=== PATIENT | female | born 1995 | race Caucasian/White ===

== ENCOUNTER 2022-07-16 01:50 | Inpatient (IN) | payer OTHER, SELFPAY ==
[2022-07-16] VITALS (38 sets, daily range): BP systolic 92–133; BP diastolic 51–84; PULSE 75–116; RESP 16–18; TEMP 36.1–37.1; O2SAT 78–100; BMI 30.1
[2022-07-16] MEDS: LACTATED RINGERS 500 ML 999 ML IV (02:00)
[2022-07-16] MEDS: Lactated Ringers 1,000 ML 200 ML IV (02:00)
[2022-07-16 02:14] LABS: Absolute Lymphocyte Count 1.67 X10^3/uL (0.83-4.51); Absolute Neutrophil Count 8.5 X10^3/uL (2.0-7.7); Basophil# 0.03 X10^3/uL; Basophil% 0.3 % (0-1); Eosinophil# 0.06 X10^3/uL; Eosinophils% 0.5 % (0-5); Hematocrit 33.8 % (37-47); Hemoglobin 10.9 g/dL (12.0-15.0); Lymphocyte # 1.67 X10^3/ul (0.83-4.51); Lymphocyte % 14.9 % (19-41); Mean Corp Hgb Conc 32.2 g/dL (32-36); Mean Corpuscular Hgb 28.2 pg (27.0-32.0); Mean Corpuscular Volume 87.6 fL (81-99); Mean Platelet Vol. 11.8 fl (6.2-12.0); Monocyte# 0.93 X10^3/uL; Monocyte% 8.3 % (0-10); NRBC Flagged by Analyzer 0 % (0-5); Neutrophil # 8.45 X10^3/uL (2.7-7.7); Neutrophil % 75.6 % (47-70); Platelet Count 221 K/mm3 (150-450); RBC Distribution Width CV 13.2 % (11.6-14.6); RBC Distribution Width SD 42.1 fl (35.1-43.9); Red Blood Count 3.86 M/mm3 (4.2-5.4); White Blood Count 11.2 K/mm3 (4.4-11.0)
[2022-07-16] MEDS: fentaNYL-bupivacaine (epidural) 100 ML BAG EPIDURAL (03:38)
[2022-07-16] MEDS: Mag Hydrox/Al Hydrox/Simeth 30 ML UDC PO (07:46)
[2022-07-16] MEDS: Lactated Ringers 1,000 ML 999 ML IV (07:52)
[2022-07-16] MEDS: Oxytocin 10 UNITS/ML Vial IM (07:59)
--- NOTE | 2022-07-16 08:21 | PCM.HP.OB ---
HPI - General General Date of Admission: 07/16/22 HPI Narrative OMER SAENZ, is a 27 F who presents at 39w3d by LMP. Contractions increased at home and presented to labor and delivery. Upon arrival in active labor. No leakage of fluid or bleeding and good movement. course uncomplicated. Maternal Data Information YANG Calculator Estimated Delivery Date Method Current WG Current Estimate 07/20/22 Manual 39w 3d PFSH [facility] Medical History (Updated 07/16/22 @ 08:33 by Vanessa Yi CNM) Anxiety Home Medications 1 1 tablet PO.IVFORM DAILY see provider 07/16/22 [History Last Taken 07/09/22 08:00] acetaminophen 325 mg capsule (Tylenol) 500 mg PO PRN PRN Pain 07/16/22 [History Last Taken 07/16/22 00:00] Allergy/AdvReac Type Severity Reaction Status Date / Time No Known Allergies Allergy Verified 07/16/22 01:32 Social History Smoking Status: Never smoker History Elective abortions Hx Para 0 Spontaneous abortions Hx # Term Pregnancies Ectopic pregnancies Hx # Pregnancies Multiple births # of living children NST FHR Rate Baby A Baseline: 145 Variability:: Moderate Accelerations:: 15 x 15 Decelerations:: None NST Reactive:: Yes FHR Category:: Category I Uterine Activity:: every 2 minutes, strong ROS Constitutional Constitutional: Reports systems reviewed and no addt'l complaints, except as documented; Denies headache(s) Eyes Eyes: Denies acute decrease in peripheral vision, blurry vision or change in vision ENT HEENT: Reports systems reviewed and no addt'l complaints, except as documented Cardiovascular Cardiovascular: Denies chest pain or dizziness Respiratory/Chest Respiratory/Chest: Denies cough, dyspnea, dyspnea on exertion, shortness of breath at rest or shortness of breath with exertion Gastrointestinal Gastrointestinal: Denies abdominal pain, diarrhea, nausea or vomiting Genitourinary Genitourinary: Denies abdominal discomfort Musculoskeletal Musculoskeletal: Denies limited range of motion Integumentary Integumentary: Reports systems reviewed and no addt'l complaints, except as documented Neurologic Neurologic: Reports systems reviewed and no addt'l complaints, except as documented Psychiatric Psychiatric: Reports systems reviewed and no addt'l complaints, except as documented Endocrine Endocrinology: Reports systems reviewed and no addt'l complaints, except as documented Hematologic/Lymphatic Hematologic/Lymphatic: Reports systems reviewed and no addt'l complaints, except as documented Allergic/Immunologic Allergic/Immunologic: Reports systems reviewed and no addt'l complaints, except as documented Vital Signs Vital Signs Vital Signs: 07/16/22 01:36 07/16/22 01:36 07/16/22 01:36 Temperature Temperature Source Temporal Pulse Rate 88 Blood Pressure 120/79 BP Systolic 120 BP Diastolic 79 Pulse Ox 07/16/22 01:36 07/16/22 01:36 07/16/22 03:24 Temperature 98.1 F Temperature Source Pulse Rate 99 Blood Pressure BP Systolic BP Diastolic Pulse Ox 98 07/16/22 03:24 07/16/22 03:28 07/16/22 03:28 Temperature Temperature Source Pulse Rate 82 Blood Pressure 133/73 H BP Systolic 133 BP Diastolic 73 Pulse Ox 100 07/16/22 03:29 07/16/22 03:29 07/16/22 03:34 Temperature Temperature Source Pulse Rate 90 Blood Pressure 120/67 BP Systolic 120 BP Diastolic 67 Pulse Ox 100 07/16/22 03:34 07/16/22 03:34 07/16/22 03:34 Temperature Temperature Source Pulse Rate 86 98 Blood Pressure BP Systolic BP Diastolic Pulse Ox 98 07/16/22 03:38 07/16/22 03:38 07/16/22 03:39 Temperature Temperature Source Pulse Rate 100 Blood Pressure 107/56 L 102/51 L BP Systolic 107 102 BP Diastolic 56 51 Pulse Ox 07/16/22 03:39 07/16/22 03:39 07/16/22 03:28 Temperature Temperature Source Temporal Pulse Rate 99 Blood Pressure BP Systolic BP Diastolic Pulse Ox 100 07/16/22 03:28 07/16/22 03:43 07/16/22 03:43 Temperature 97.8 F Temperature Source Pulse Rate 116 H Blood Pressure BP Systolic BP Diastolic Pulse Ox 93 07/16/22 03:44 07/16/22 03:44 07/16/22 03:48 Temperature Temperature Source Pulse Rate 108 H Blood Pressure 121/84 H BP Systolic 121 BP Diastolic 84 Pulse Ox 99 07/16/22 03:48 07/16/22 03:49 07/16/22 03:49 Temperature Temperature Source Pulse Rate 107 H 110 H Blood Pressure BP Systolic BP Diastolic Pulse Ox 100 07/16/22 03:53 07/16/22 03:53 07/16/22 03:54 Temperature Temperature Source Pulse Rate 106 H 108 H Blood Pressure 111/62 BP Systolic 111 BP Diastolic 62 Pulse Ox 07/16/22 03:54 07/16/22 03:59 07/16/22 03:59 Temperature Temperature Source Pulse Rate 96 Blood Pressure 107/59 L BP Systolic 107 BP Diastolic 59 Pulse Ox 100 07/16/22 03:59 07/16/22 04:03 07/16/22 04:03 Temperature Temperature Source Pulse Rate 95 Blood Pressure 106/59 L BP Systolic 106 BP Diastolic 59 Pulse Ox 99 07/16/22 04:04 07/16/22 04:04 07/16/22 04:09 Temperature Temperature Source Pulse Rate 88 Blood Pressure 108/65 BP Systolic 108 BP Diastolic 65 Pulse Ox 100 07/16/22 04:09 07/16/22 04:10 07/16/22 04:09 Temperature Temperature Source Temporal Pulse Rate 93 Blood Pressure BP Systolic BP Diastolic Pulse Ox 78 07/16/22 04:09 07/16/22 05:09 07/16/22 05:09 Temperature 97.0 F L Temperature Source Pulse Rate 93 Blood Pressure 111/65 BP Systolic 111 BP Diastolic 65 Pulse Ox 07/16/22 05:08 07/16/22 05:08 07/16/22 05:08 Temperature 97.8 F Temperature Source Temporal Pulse Rate Blood Pressure BP Systolic BP Diastolic Pulse Ox 97 07/16/22 06:33 07/16/22 06:33 07/16/22 06:34 Temperature Temperature Source Pulse Rate 102 H Blood Pressure 118/76 BP Systolic 118 BP Diastolic 76 Pulse Ox 98 07/16/22 06:34 07/16/22 06:34 07/16/22 06:34 Temperature 97.9 F Temperature Source Temporal Pulse Rate 100 Blood Pressure BP Systolic BP Diastolic Pulse Ox 07/16/22 07:16 07/16/22 07:16 07/16/22 07:19 Temperature Temperature Source Temporal Pulse Rate 87 Blood Pressure 115/61 BP Systolic 115 BP Diastolic 61 Pulse Ox 07/16/22 07:19 07/16/22 07:52 07/16/22 07:52 Temperature 98.0 F Temperature Source Pulse Rate 80 Blood Pressure BP Systolic BP Diastolic Pulse Ox 100 07/16/22 07:55 07/16/22 07:55 07/16/22 08:10 Temperature Temperature Source Pulse Rate 98 Blood Pressure 105/62 BP Systolic 105 BP Diastolic 62 Pulse Ox 89 07/16/22 08:10 07/16/22 08:10 Temperature Temperature Source Pulse Rate 94 Blood Pressure BP Systolic BP Diastolic Pulse Ox 99 Weight Weight: 170 lb 3.15 oz Body Mass Index (BMI) 30.1 Physical Exam Const alert and oriented x3 General Appearance: cooperative Orientation / Consciousness: awake, oriented to person, oriented to place and oriented to time Exam Limitations: no limitations HEENT normocephalic Head and Scalp: normal to inspection, normocephalic and atraumatic Face and Sinus: normal facial exam Eyes General Eye: normal appearance of both eyes Neck full ROM Chest Chest: symmetrical chest wall rise Resp normal respiratory effort and normal air movement Auscultation: clear to auscultation bilaterally Cardio regular rate, regular rhythm, S1 normal heart sound, S2 normal heart sound, no murmurs, no rub, no gallops and no clicks GI normal to inspection, nondistended, normoactive bowel sounds and non-tender appearance of the vagina normal Bladder / Kidney Exam: no CVA tenderness Back/Spine normal ROM Extremity normal to inspection and full ROM Skin no rashes or lesions noted Neuro oriented x3, CN's II-XII intact bilaterally and moves all extremities Sensorium / Orientation: awake, alert and oriented to person Motor Exam: clonus absent Deep Tendon Reflexes: Rt Patellar (L4): 2+ and Lt Patellar (L4): 2+ Labs Labs Labs: Blood Type O POSITIVE Antibody Screen NEGATIVE Hct 33.8 % (37-47) L Hgb 10.9 g/dL (12.0-15.0) L GBS negative O negative RPR negative HIV negative Rubella immune GC/CT negative 1hr GCT wnl Hep C negative HBsAG negative Assessment & Plan (1) control counseling: COMMENT: Desires Nexplanon insertion prior to discharge PLAN: Plan 1) Admit to labor and delivery 2) Routine labs 3) Continuous EFM, Category 1 4) Desires epidural upon admission 5) Positional changes 6) Desires immediate PP nexplanon placement 7) collaborative physician and notified of patient status
--- NOTE | 2022-07-16 08:21 | EX.PCM.OBRPT ---
Assessment & Plan (1) Active labor at term: (2) History of anxiety: (3) Vaginal delivery: (4) First degree perineal laceration: Vaginal Delivery Maternal Presentation Maternal Presentation: Active Labor Operative Information Date of Procedure: 07/16/22 Pre-Operative Diagnosis: Active labor at term Post-Operative Diagnosis: with first degree perineal laceration Surgery / Procedure Performed: Spontaneous Vaginal Delivery Type of Anesthesia: Epidural Drain: Ramirez to straight drain Estimated Blood Loss: 300 ml Time of Delivery: 07:56 Findings Description of Procedure: Progressed to complete with urge to push. Epidural for pain management. of viable male over first degree perineal laceration. APGARS 8,9 respectively. Infant head delivered with body immediately forthcoming. Placed on maternal abdomen, strong cry. Mouth and nares suctioned for secretions. Pitocin IM given for active 3rd stage management. Cord doubly clamped and cut by FOB after pulsations ceased, delayed cord clamping. Placenta delivered intact via lindy, 3 vessel cord intact. Perineum inspected and revealed 1st degree perineal laceration. Repaired with 3.0 vicryl rapide and epidural. Fundus firm and hemostasis achieved. 300ml EBL. Mom and baby stable, planning to breastfeed. Family bonding well. notified of delivery. Presentation: Vertex and ISAI Amniotic Membrane Rupture Type: Spontaneous Amniotic Fluid Description: Clear Placental Delivery Description: Expressed Placenta Disposition: [facility] Cord Vessel Description: 3 Vessels Cord Entanglement: None Infant A Gender: Male (1 minute): 8 (5 minute): 9 Delayed Cord Clamping: Yes Post Vaginal Delivery Medications Given After Delivery: - (IM pitocin) Episiotomy Description: None Laceration: Perineal Extension/lac and 1st degree Complication Complications: None
[2022-07-16] MEDS: Ibuprofen 600 MG Tablet PO (23:23)
[2022-07-17 03:20] VITALS: BP 104/64; PULSE 76; RESP 16; TEMP 36.7; O2SAT 97
[2022-07-17 06:10] LABS: Hematocrit 28.4 % (37-47); Hemoglobin 8.9 g/dL (12.0-15.0); Mean Corp Hgb Conc 31.3 g/dL (32-36); Mean Corpuscular Hgb 28.3 pg (27.0-32.0); Mean Corpuscular Volume 90.4 fL (81-99); Platelet Count 173 K/mm3 (150-450); RBC Distribution Width CV 13.6 % (11.6-14.6); RBC Distribution Width SD 44.4 fl (35.1-43.9); Red Blood Count 3.14 M/mm3 (4.2-5.4); White Blood Count 11.2 K/mm3 (4.4-11.0)
[2022-07-17] MEDS: Etonogestrel 68 MG IMPLANT SC (07:58)
[2022-07-17] MEDS: Ibuprofen 600 MG Tablet PO (08:05)
--- NOTE | 2022-07-17 08:13 | PCM.PN.OB ---
Subjective Subjective Patient seen at bedside. Feeling good. with minimal support. Ambulating and voiding without difficulty. Lochia decreasing. Desires discharge home today. Objective Data Objective Data Vital Signs: Vital Signs Temp Pulse Resp BP Pulse Ox O2 Del Method 98.1 F 76 16 104/64 97 Room Air 07/17/22 03:20 07/17/22 03:20 07/17/22 03:20 07/17/22 03:20 07/17/22 03:20 07/17/22 03:20 Oxygen Delivery Method Room Air Weight: 170 lb 3.15 oz Body Mass Index (BMI) 30.1 Intake & Output: Intake and Output for Last 24 Hours 07/15/22 07/16/22 07/17/22 23:59 23:59 23:59 Intake Total 1766.6 / 1766.6 Output Total 650 / 650 Balance 1116.6 / 1116.6 Lab / Micro Data Result Diagrams: 07/17/22 06:00 Labs: Laboratory Results - last 24 hr 07/17/22 06:00: WBC 11.2 H, RBC 3.14 L, Hgb 8.9 L, Hct 28.4 L, MCV 90.4, MCH 28.3, MCHC 31.3 L, RDW Std Deviation 44.4 H, RDW Coeff of Piyush 13.6, Plt Count 173, MPV 12.0 ROS Eyes Eyes: Denies blurry vision, change in vision or spots in vision ENT HEENT: Denies dizziness or headache(s) Cardiovascular Cardiovascular: Denies abdominal pain, chest pain or dyspnea Respiratory/Chest Respiratory/Chest: Denies cough, dyspnea, shortness of breath at rest or shortness of breath with exertion Gastrointestinal Gastrointestinal: Denies abdominal pain, diarrhea or vomiting Genitourinary Genitourinary: Denies change in urinary stream, difficulty urinating or dysuria Musculoskeletal Musculoskeletal: Reports none Integumentary Integumentary: Denies rash Neurologic Neurologic: Denies dizziness, headache(s), memory loss or weakness Physical Exam Const alert and no apparent distress General Appearance: cooperative and comfortable Exam Limitations: no limitations HEENT normocephalic Eyes General Eye: normal appearance of both eyes Neck full ROM General: normal visual inspection Chest Chest: symmetrical chest wall rise Resp normal respiratory effort and normal air movement Effort and Inspection: symmetric chest movement Auscultation: clear to auscultation bilaterally Cardio regular rate and regular rhythm GI normal to inspection, nondistended, normoactive bowel sounds Back/Spine normal ROM Extremity full ROM and no calf tenderness General Extremity: normal exam except as noted Skin no rashes or lesions noted Neuro CN's II-XII intact bilaterally Psych mental status grossly normal Assessment & Plan (1) control counseling: COMMENT: Desires Nexplanon insertion prior to discharge (2) First degree perineal laceration: (3) Vaginal delivery: (4) Care and examination of lactating mother: PLAN: Plan PPD 1 Routine care support Nexplanon placed at bedside without incident D/C home with follow up in office
[2022-07-17 08:14] VITALS: BP 94/59; PULSE 96; RESP 16; TEMP 36.6
--- NOTE | 2022-07-17 08:15 | DCINST_ITS ---
Discharge Instructions Diet Discharge Diet: No restrictions Activity Discharge Activity: Return to Normal Activity, May Shower and May Take a Tub Bath May resume sexual activity in: 4-6 weeks Weight Bearing Status: Weight bearing as tolerated Dressing / Incision Call your doctor if you observe: Inability to urinate, Using more than 1 pad per hour, Shortness of breath, Dizziness, Swelling in the ankles, Chest pain, Calf discomfort and Uncontrolled pain Additional Dressing/Incision Instructions:: Keep pressure dressing on left arm for 24 hours. Allow steri strips to come off on own Follow Up Care When: Within 14 days Test Results: Test results from this visit will be discussed in further detail at your follow- up appointment, if applicable. Discharge Plan Admission Admit Date/Time: 07/16/22 01:50 Primary Reason for Your Visit: Labor and delivery Attending Provider: Vanessa Yi Primary Care Provider: Care Cora Florentino Primary Discharge Orders/Prescriptions Prescriptions: No Action acetaminophen [Tylenol] 325 mg Capsule 500 mg PO PRN PRN (Reason: Pain) 1 1 tablet PO.IVFORM DAILY Referrals / Follow Up: Care Physician,Cora Primary [Primary Care Provider] - Disposition Disposition (needs filled in before D/C Order can be placed): Home, Self Care
--- NOTE | 2022-07-17 08:18 | EX.PCM.OBRPT ---
Assessment & Plan (1) control counseling: COMMENT: Desires Nexplanon insertion prior to discharge (2) Insertion of Nexplanon: PLAN: Plan After obtaining consent from patient, R/B/A of Nexplanon discussed with patient and . Questions answered. Patient placed in supine position with left arm placed over head. Area of insertion marked, cleaned with Betadine swabs and sprayed with topical anesthetic. Insertion of Nexplanon completed and jaimee palpated by provider and patient. Steri strips and pressure dressing placed. Directions of care given to patient. Procedure tolerated well. Maternal Data Information YANG Calculator Estimated Delivery Date Method Current WG Current Estimate 07/20/22 Manual 39w 4d
[2022-07-17] MEDS: Prenatal Vits Tablet 1 TABLET PO (11:29)
== END 2022-07-17 12:23 | disposition home or self-care (01) | DRG 807 ==
LOC: WPOUT 01:51 → WP 01:51
PROVIDERS: Admitting Provider Advanced Practice Midwife; Visit Provider Advanced Practice Midwife
DX: O70.0 First degree perineal laceration during delivery (principal); Z37.0 Single live birth; Z30.017 Encounter for initial prescription of implantable subdermal contraceptive; Z3A.39 39 weeks gestation of pregnancy; Z86.59 Personal history of other mental and behavioral disorders
CPT/HCPCS: 59025; 59050; 85025; 85027; 86850; 86900; 86901; 99221; J7120; G0378

== ENCOUNTER 2025-04-07 10:48 | Emergency (ER) | payer OTHER, SELFPAY ==
[2025-04-07 10:49] VITALS: BP 120/72; PULSE 78; RESP 16; TEMP 36.6; O2SAT 100; BMI 29.4
--- NOTE | 2025-04-07 11:21 | CT_ITS ---
PROCEDURE: CT/CTA Head AND Neck W/ Contrast
--- NOTE | 2025-04-07 11:21 | CT_ITS ---
PROCEDURE: CT/Brain/Head without Contrast
--- NOTE | 2025-04-07 11:22 | EX.ED.VIS.HA ---
HPI History of Present Illness Chief Complaint: Headache Detail of Chief Complaint: Headache Informant: patient Narrative Narrative: Patient presents with a headache that started 4 days ago. Became severe last night and she became very anxious. She checked her pupils and noted that her left pupil was larger than her right. She called PCPs office today and was advised to seek evaluation in the emergency department. She denies any falls or head injuries. She did take ibuprofen this morning and the headache is much better and rates it a 2 out of 10 currently. She has had some nausea. She complains of some sound sensitivity. She has been having headache for more than 3 years off-and-on. No family history of brain tumors or aneurysms. [facility] Medical History (Updated 04/07/25 @ 13:[address] Ruthann Mas, ) Care and examination of lactating mother control counseling First degree perineal laceration Vaginal delivery History of anxiety Anxiety Home Medications ?Medication ?Instructions ?Recorded ?Last Taken ?Type 1 1 tablet PO.IVFORM DAILY see 07/16/22 07/09/22 08:00 History provider acetaminophen 325 mg capsule 500 mg PO PRN PRN Pain 07/16/22 07/16/22 00:00 History (Tylenol) hydroxyzine pamoate 25 mg capsule 25 mg PO TID PRN anxiety #20 caps 04/07/25 Unknown Rx (Vistaril) Allergy/AdvReac Type Severity Reaction Status Date / Time No Known Allergies Allergy Verified 04/07/25 10:51 Social History Smoking Status: Never smoker ROS ROS ED Review of Systems ROS Unobtainable: other Constitutional Constitutional ED: Reports lethargy; Denies chills, fever(s), sweats or weight loss Eyes Eyes: Denies blurry vision, change in vision or diplopia ENT ENT ED: Denies rhinorrhea or sore throat Cardiovascular Cardiovascular: Denies chest pain, orthopnea or racing heartbeat Respiratory/Chest Respiratory/Chest: Denies cough, dyspnea, dyspnea on exertion, orthopnea or sputum Gastrointestinal Gastrointestinal: Reports nausea; Denies abdominal pain, diarrhea or vomiting Genitourinary Genitourinary ED: Denies dysuria, hematuria or urinary frequency Musculoskeletal Musculoskeletal: Denies arthralgias, back pain, myalgias or neck pain Integumentary Denies abscess, Abrasions or rash Neurologic Neurologic: Reports headache(s); Denies weakness Psychiatric Psychiatric: Denies anxiety, depression or suicidal thoughts Endocrine Endocrinology: Denies polydipsia, polyphagia or polyuria Hematologic/Lymphatic Hematologic/Lymphatic: Denies easy bleeding, easy bruising or lymphadenopathy Allergic/Immunologic Allergic/Immunologic ED: Denies mouth swelling, tongue swelling or urticaria EXAM Physical Exam Const Vital Signs: 04/07/25 10:49 Temperature 97.8 F Temperature Source Oral Pulse Rate 78 Respiratory Rate 16 Blood Pressure 120/72 Blood Pressure Mean 88 Pulse Ox 100 Oxygen Delivery Method Room Air Positive well nourished and well developed General Appearance ED: well developed and NAD HEENT Reports TM's clear and moist mucous membranes normocephalic and atraumatic; Negative for trauma or tenderness Tympanic Membrane ED: Yes TM's clear Eyes PERRL and EOMs intact bilaterally General Eye ED: Negative for pale conjunctiva or scleral icterus Neck no lymphadenopathy, supple and no JVD General: Negative for tenderness Chest Wall inspection of chest normal and palpation of chest normal Chest: Negative for tenderness Resp normal respiratory effort and clear to auscultation bilaterally Effort and Inspection: Negative for respiratory distress or pain with movement Auscultation: Negative for rhonchi, wheezes or diminished lung sounds Cardio regular rate, regular rhythm, S1 normal heart sound, S2 normal heart sound and no murmurs Peripheral Pulses: pulses 2+ throughout GI normal to inspection, nondistended, normoactive bowel sounds, soft to palpation, non-tender, non-distended and no masses Back/Spine no CVA tenderness and no thoracic nor lumbar tenderness Extremity normal to inspection General Extremety ED: Negative for edema General Extremity: Negative for edema Neuro oriented x3, CN's II-XII intact bilaterally, no sensory deficits noted and gait normal Neuro Narrative: Finger-nose and heel barajas testing within normal limits, negative Romberg, negative pronator drift, fundi benign Sensorium / Orientation: awake, alert, oriented to person, oriented to place and oriented to time Motor Exam: strength 5/5 throughout and strength abnormal Psych mental status grossly normal Skin no rashes or lesions noted and no wounds MDM MDM MDM Narrative Medical decision making narrative: Patient presents with years of headache. She started having a headache 4 days ago that became severe and she was concerned about enlarged uneven pupil last night on the left. She was advised to come to the ER to get evaluated. Currently her headache is mild and she does not want thing for pain. IV line established. She had a CT of the brain as well as CTA head and neck that were normal. There was no evidence of intracranial hemorrhage or tumor or aneurysm. Patient also with history of anxiety and I will write her a prescription for Vistaril for home. She will be referred back to her primary care physician for follow-up within next 3 to 5 days. Suspect headache likely migraine versus stress headache. Lab Data Attestation: I reviewed the patient's lab results. Radiography Diagnostic Testing: Clinical Impression(s) from Imaging Studies Brain CT 04/07/25 11:21 IMPRESSION: No acute intracranial abnormality. Reading Location: [facility] Head/Neck CTA 04/07/25 11:21 IMPRESSION: No hemodynamically significant stenosis within the head or neck. No evidence of intracranial aneurysm. Reading Location: [facility] Discharge Plan Triage Chief Complaint: Headache ED Provider: Ruthann Mas Dx/Rx/DC Orders Clinical Impression: Headache, Anxiety Instructions: ED Anxiety Reaction, ED Headache Unspecified Prescriptions: New hydroxyzine pamoate [Vistaril] 25 mg capsule 25 mg PO TID PRN (Reason: anxiety) Qty: 20 0RF No Action acetaminophen [Tylenol] 325 mg Capsule 500 mg PO PRN PRN (Reason: Pain) 1 1 tablet PO.IVFORM DAILY Primary Care Provider: Jean Pierre Dias Referrals: Care Physician,No Primary [Non-Staff, Medical] Jean Pierre Dias MD [[facility]] - 3-5 Days Print Language: Welsh Disposition Disposition: Home, Self Care
[2025-04-07 13:27] VITALS: BP 123/73; PULSE 70; RESP 18; TEMP 36.7; O2SAT 100
== END 2025-04-07 13:28 | disposition home or self-care (01) ==
PROVIDERS: Emergency Provider Emergency Medicine; PCP Family Medicine; Visit Provider Emergency Medicine
DX: R51.9 Headache, unspecified (principal); F41.9 Anxiety disorder, unspecified; R11.0 Nausea
CPT/HCPCS: 70450; 70496; 70498; 99283; Q9967; A4216